=== PATIENT | female | born 1980 | race Caucasian/White ===

== ENCOUNTER 2017-07-03 11:02 | Emergency (ER) | payer BC ==
[~2017-07-03] VITALS: Ht 157.5 cm; Wt 90.0 kg
[~2017-07-03 11:02] MED LIST: ADDE30TA PO; B12-1CHW CHEW; HYDR-3534 PO; LEXA5SOL PO; MOBI7.5T PO; MULT-65 PO; PROM25TA5 PO; VALI10TA PO; ZANA6CAP PO
[2017-07-03 11:08] VITALS: BP 172/96; PULSE 64; RESP 18; TEMP 97.8; O2SAT 96
[2017-07-03 11:42] VITALS: O2SAT 98
[2017-07-03] MEDS ORDERED: ZOFR4TAB PO (11:43)
[2017-07-03] MEDS ORDERED: TIZA4 PO (11:43)
[2017-07-03] MEDS ORDERED: LEXA20TA PO (11:43)
[2017-07-03] MEDS ORDERED: HYDR-3583 PO (11:43)
[2017-07-03] MEDS ORDERED: SODIUM CHLOR 0.9% 1000 ML INJ 1,000 ML IV ONE (11:45)
[2017-07-03 11:54] LABS: BLOOD, URINE NEG (NEG); GLUCOSE,URINE NEG (NEG); KETONE, URINE NEG (NEG); NITRITE,URINE NEG (NEG)
[2017-07-03 11:55] LABS: AUTOMATED NEUTROPHIL # 3.2 TH/MM3 (1.8-7.7); BASOPHIL # 0.1 TH/MM3 (0-0.2); BASOPHIL % 1.3 % (0.0-2.0); EOSINOPHIL # 0.3 TH/MM3 (0-0.4); EOSINOPHIL % 4.7 % (0.0-4.0); HEMATOCRIT 36.6 % (35.0-46.0); HEMO FLAGS DIFF FINAL; LYMPH % 37.6 % (9.0-44.0); LYMPHOCYTE # 2.5 TH/MM3 (1.0-4.8); MEAN CELL VOLUME 93.1 FL (80.0-100.0); MEAN CORPUSCULAR HEMOGLOBIN 31.8 PG (27.0-34.0); MEAN CORPUSCULAR HGB CONC 34.1 % (32.0-36.0); MONO % 7.6 % (0.0-8.0); NEUT % 48.8 % (16.0-70.0); PLATELET COUNT 250 TH/MM3 (150-450); RED BLOOD COUNT 3.93 MIL/MM3 (4.00-5.30); RED CELL DISTRIBUTION WIDTH 12.8 % (11.6-17.2); WHITE BLOOD COUNT 6.6 TH/MM3 (4.0-11.0)
[2017-07-03 11:58] LABS: METHOD OF COLLECTION CLEAN CATCH; URINE COLOR STRAW (YELLW/STRAW)
--- NOTE | 2017-07-03 11:58 | PD ---
HPI Chief Complaint: Pain: Acute or Chronic Time Seen by Provider: 11:22 Travel History International Travel<30 days: No Contact w/Intl Traveler<30days: No Traveled to known affect area: No History of Present Illness HPI 36 y/o female presents with pain all over and nonbloody emesis. She feels like she is having a MS exacerbation. She has a management engineer and placed her own IV in her left wrist prior to arrival to get medication and fluids. She states that she is a hard stick. She states she last was in the hospital a month ago in [place] where she lives. She is here today as her ride lives in the area Onset: Gradual Duration:couple days Location: generalized Quality:sharp Severity: severe Context:ms Timing:progressive Modifying Factors: worse with movement Associated sign and symptoms:None PFSH Past Medical History ADHD: Yes Asthma: No Autoimmune Disease: Yes (MS) Blood Disorders: No Anxiety: Yes Depression: No Heart Rhythm Problems: No Cancer: No Cardiovascular Problems: Yes High Cholesterol: No Chemotherapy: No Chest Pain: No Congestive Heart Failure: No COPD: No Diabetes: No Diminished Hearing: No Endocrine: No Gastrointestinal Disorders: Yes (NAUSEA/VOMITING) Genitourinary: Yes Headaches: Yes Hepatitis: No Hiatal Hernia: No Hypertension: Yes Immune Disorder: No Implanted Vascular Access Dvce: No Kidney Stones: No Medical other: Yes (NAUSEA/VOMITING) Musculoskeletal: Yes (chronic back pain ) Neurologic: Yes (chronic vertigo) Psychiatric: Yes (ANXIETY) Reproductive: No Respiratory: No Migraines: Yes Radiation Therapy: No Renal Failure: No Seizures: No Sleep Apnea: No Thyroid Disease: No Tetanus Vaccination: < 5 Years Influenza Vaccination: Yes ?: Not LMP: TWO WEEKS AGO TUBAL LIGATION Past Surgical History Abdominal Surgery: Yes (ABD WALL TEAR FROM STRAINING) AICD: No Arteriovenous Shunt: No Cardiac Surgery: No Ear Surgery: No Endocrine Surgery: No Eye Surgery: No Genitourinary Surgery: Yes Gynecologic Surgery: Yes (LAPAROSCOPIC ABLATION, LAPAROSCOPIC EXPLORATORY) Insulin Pump: No Joint Replacement: No Neurologic Surgery: No Oral Surgery: Yes (wisdom teeth) Pacemaker: No Thoracic Surgery: No Other Surgery: Yes (laprascopic) Social History Alcohol Use: No Tobacco Use: No Substance Use: No Allergies-Medications (Allergen,Severity, Reaction): Coded Allergies: meclizine (Unverified Allergy, Severe, Hives, 07/03/17) VOMITING penicillin G (Unverified Allergy, Severe, HIVES, 07/03/17) hydrochlorothiazide (Unverified Adverse Reaction, Severe, LOW BLOOD PRESSURE TOO LOW, 07/03/17) Reported Meds & Prescriptions Reported Meds & Active Scripts Active Reported Zanaflex (Tizanidine HCl) 4 Mg Tab 4 Mg PO TID Hydrocodone-Acetaminophen 10-325 mg Tab 1 Tab PO Q4H PRN Lexapro (Escitalopram Oxalate) 20 Mg Tab 20 Mg PO DAILY Zofran (Ondansetron HCl) 4 Mg Tab 4 Mg PO Q6HR PRN Review of Systems Except as stated in HPI: all other systems reviewed are Neg Physical Exam Narrative GENERAL: Well-nourished, well-developed patient. talking with eyes closed SKIN: Warm and dry. HEAD: Normocephalic and atraumatic. EYES: No injection or drainage. pupils pinpoint ENT: No nasal drainage noted. NECK: Supple, trachea midline. CARDIOVASCULAR: Regular rate and rhythm RESPIRATORY: Breath sounds equal bilaterally. No accessory muscle use. GASTROINTESTINAL: Abdomen soft, non-tender, nondistended. EXTREMITIES: No edema. NEUROLOGICAL: Awake and alert. Motor and sensory grossly within normal limits. Normal speech. Data Data Last Documented VS Vital Signs Date Time Temp Pulse Resp B/P (MAP) Pulse Ox O2 Delivery O2 Flow Rate FiO2 07/03/17 14:53 07/03/17 14:32 69 16 100 Room Air 07/03/17 11:08 97.8 Orders Orders Magnesium (Mg) (07/03/17 11:38) Phosphorus (Po4) (07/03/17 11:38) Complete Blood Count With Diff (07/03/17 11:38) Comprehensive Metabolic Panel (07/03/17 11:38) Urinalysis - C+S If Indicated (07/03/17 11:38) Act Partial Throm Time (Ptt) (07/03/17 11:38) Prothrombin Time / Inr (Pt) (07/03/17 11:38) Ct Brain W/O Iv Contrast(Rout) (07/03/17 ) Chest, Single Ap (07/03/17 ) Electrocardiogram (07/03/17 ) Iv Access Insert/Monitor (07/03/17 11:38) Ecg Monitoring (07/03/17 11:38) Oximetry (07/03/17 11:38) Sodium Chlor 0.9% 1000 Ml Inj (Ns 1000 M (07/03/17 11:45) Drug Screen, Random Urine (07/03/17 11:38) Ondansetron Odt (Zofran Odt) (07/03/17 14:15) Ed Discharge Order (07/03/17 14:26) Ketorolac Inj (Toradol Inj) (07/03/17 14:45) Labs Laboratory Tests Test 07/03/17 11:45 07/03/17 12:15 White Blood Count 6.6 TH/MM3 Red Blood Count 3.93 MIL/MM3 Hemoglobin 12.5 GM/DL Hematocrit 36.6 % Mean Corpuscular Volume 93.1 FL Mean Corpuscular Hemoglobin 31.8 PG Mean Corpuscular Hemoglobin Concent 34.1 % Red Cell Distribution Width 12.8 % Platelet Count 250 TH/MM3 Mean Platelet Volume 10.7 FL Neutrophils (%) (Auto) 48.8 % Lymphocytes (%) (Auto) 37.6 % Monocytes (%) (Auto) 7.6 % Eosinophils (%) (Auto) 4.7 % Basophils (%) (Auto) 1.3 % Neutrophils # (Auto) 3.2 TH/MM3 Lymphocytes # (Auto) 2.5 TH/MM3 Monocytes # (Auto) 0.5 TH/MM3 Eosinophils # (Auto) 0.3 TH/MM3 Basophils # (Auto) 0.1 TH/MM3 CBC Comment DIFF FINAL Differential Comment Urine Collection Type CLEAN CATCH Urine Color STRAW Urine Turbidity CLEAR Urine pH 6.0 Urine Specific [place] 1.006 Urine Protein NEG mg/dL Urine Glucose (UA) NEG mg/dL Urine Ketones NEG mg/dL Urine Occult Blood NEG Urine Nitrite NEG Urine Bilirubin NEG Urine Leukocyte Esterase NEG Urine Squamous Epithelial Cells 0-5 /hpf Microscopic Urinalysis Comment CULT NOT INDICATED Urine Opiates Screen POS Urine Barbiturates Screen NEG Urine Amphetamines Screen NEG Urine Benzodiazepines Screen POS Urine Cocaine Screen NEG Urine Cannabinoids Screen NEG Prothrombin Time 10.0 SEC Prothromb Time International Ratio 0.9 RATIO Activated Partial Thromboplast Time 23.6 SEC Blood Urea Nitrogen 8 MG/DL Creatinine 0.82 MG/DL Random Glucose 99 MG/DL Total Protein 6.7 GM/DL Albumin 3.4 GM/DL Calcium Level 8.3 MG/DL Phosphorus Level 3.6 MG/DL Magnesium Level 2.0 MG/DL Alkaline Phosphatase 71 U/L Aspartate Amino Transf (AST/SGOT) 17 U/L Alanine Aminotransferase (ALT/SGPT) 22 U/L Total Bilirubin 0.4 MG/DL Sodium Level 140 MEQ/L Potassium Level 3.8 MEQ/L Chloride Level 107 MEQ/L Carbon Dioxide Level 23.7 MEQ/L Anion Gap 9 MEQ/L Estimat Glomerular Filtration Rate 78 ML/MIN MDM Medical Decision Making Medical Screen Exam Complete: Yes Emergency Medical Condition: Yes Medical Record Reviewed: Yes (pmh confirmed) Interpretation(s) CBC & BMP Diagram 07/03/17 11:45 07/03/17 12:15 Total Protein 6.7, Albumin 3.4, Calcium Level 8.3 L, Phosphorus Level 3.6, Magnesium Level 2.0, Alkaline Phosphatase 71, Aspartate Amino Transf (AST/SGOT) 17, Alanine Aminotransferase (ALT/SGPT) 22, Total Bilirubin 0.4 Last [address] 07/03/17 0000 Signed Impressions: Service Date/Time: Monday, July 03, 2017 11:47 - CONCLUSION: 1. No acute intracranial abnormality identified. Sunny Jamison MD Chest X-Ray 07/03/17 0000 Signed Impressions: Service Date/Time: Monday, July 03, 2017 12:14 - CONCLUSION: 1. Left basilar subsegmental atelectasis versus scarring. Kumar Haney MD Differential Diagnosis MS exacerbation, UTI, URI, electrolyte abnormality, anemia Narrative Course Will check blood work, imaging and dose with fluids and reevaluate ed workup no acute, will get records and discuss with her neurologist, patient requesting pain medication, will dose with toradol and zofran for nausea Patient denies any new complaints, all questions answered. Patient knows that follow up is incumbent on them and to return to the emergency room immediately if new or worsening symptoms develop. Patient given strict return precautions, vitals reviewed and are normal, agrees to further workup as an outpatient. Physician Communication Physician Communication dr potter states to ma and will see in office Diagnosis Primary Impression: Generalized pain Additional Impression: Nausea Patient Instructions: General Instructions Additional Instructions: tylenol as needed, follow with your neurologist tommorrow, return as needed Med/Other Pt SpecificInfo: No Change to Meds Disposition: 01 DISCHARGE HOME Condition: Stable Elvie Castellanos MD Jul 03, 2017 11:58
[2017-07-03 11:59] LABS: COMMENT (UR) CULT NOT INDICATED; CULTURE IF INDICATED CULT NOT INDICATED; SQUAMOUS EPITHELIAL CELL URINE 0-5 /hpf (0-5)
[2017-07-03 12:31] LABS: CHLORIDE 107 MEQ/L (98-107); POTASSIUM 3.8 MEQ/L (3.5-5.1); SODIUM (NA) 140 MEQ/L (136-145)
[2017-07-03 12:35] LABS: APTT (PATIENT) 23.6 SEC (24.3-30.1); INTERNATIONAL NORMALIZED RATIO 0.9 RATIO
--- NOTE | 2017-07-03 12:36 | RADRPT ---
EXAM DATE/TIME: 07/03/2017 12:14 [facility] COMPARISON: No previous studies available for comparison. INDICATIONS : Weakness and slurred speech today. MEDICAL HISTORY : Multiple sclerosis. SURGICAL HISTORY : None. ENCOUNTER: Initial ACUITY: 1 day PAIN SCORE: 2/10 LOCATION: Bilateral chest FINDINGS: A single view of the chest demonstrates the lungs to be symmetrically aerated without evidence of mas s, infiltrate or effusion. Left basilar subsegmental atelectasis versus scarring. The cardiomediasti nal contours are unremarkable. Osseous structures are intact. CONCLUSION: 1. Left basilar subsegmental atelectasis versus scarring. Kumar Haney MD on July 03, 2017 at 12:34 Board Certified Radiologist. This report was verified electronically.
[2017-07-03 12:39] LABS: ANION GAP 9 MEQ/L (5-15); BICARBONATE 23.7 MEQ/L (21.0-32.0); BLOOD UREA NITROGEN 8 MG/DL (7-18)
[2017-07-03 12:42] LABS: ALT (GPT) 22 U/L (10-53); AST (GOT) 17 U/L (15-37); GLOMERULAR FILTRATION RATE 78 ML/MIN (>89)
[2017-07-03 12:43] LABS: TOTAL BILIRUBIN ADULT 0.4 MG/DL (0.2-1.0)
[2017-07-03 12:45] LABS: ALKALINE PHOSPHATASE 71 U/L (45-117)
[2017-07-03 12:55] VITALS: BP 124/82; PULSE 66; RESP 16; O2SAT 95
--- NOTE | 2017-07-03 13:44 | RADRPT ---
EXAM DATE/TIME: 07/03/2017 11:47 [facility] COMPARISON: CTA CAROTID ARTERIES W 3D RECON, March 12, 2014, 12:28. INDICATIONS : Confusion. RADIATION DOSE: 55.61 CTDIvol (mGy) MEDICAL HISTORY : Hypertension. SURGICAL HISTORY : None. ENCOUNTER: Initial ACUITY: 1 day PAIN SCALE: 0/10 LOCATION: cranial TECHNIQUE: Multiple contiguous axial images were obtained of the head. Using automated exposure control and adj ustment of the mA and/or kV according to patient size, radiation dose was kept as low as reasonably a chievable to obtain optimal diagnostic quality images. DICOM format image data is available electro nically for review and comparison. FINDINGS: CEREBRUM: The ventricles are normal for age. No evidence of midline shift, mass lesion, hemorrhage or acute in farction. No extra-axial fluid collections are seen. POSTERIOR FOSSA: The cerebellum and brainstem are intact. The 4th ventricle is midline. The cerebellopontine angle i s unremarkable. EXTRACRANIAL: The visualized portion of the orbits is intact. SKULL: The calvaria is intact. No evidence of skull fracture. CONCLUSION: 1. No acute intracranial abnormality identified. Sunny Jamison MD on July 03, 2017 at 13:29 Board Certified Radiologist. This report was verified electronically.
[2017-07-03] MEDS ORDERED: ONDANSETRON ODT 4 MG TAB PO ONE (14:15)
[2017-07-03 14:32] VITALS: BP 140/89; PULSE 69; RESP 16; O2SAT 100
[2017-07-03] MEDS ORDERED: KETOROLAC TROMETHAMINE 60 MG/2 ML (IM) VIAL IM ONE (14:45)
--- NOTE | 2017-07-03 21:16 | EKG ---
Date Performed: 07/03/2017 Time Performed: 12:06:07 PTAGE: 36 years EKG: Sinus rhythm NORMAL ECG PREVIOUS TRACING : 11/10/2014 13.34 Compared to prior tracing no significant change DOCTOR: Corinne Santos Interpretating Date/Time 07/03/2017 21:15:14
== END 2017-07-03 14:53 | disposition home or self-care (01) ==
LOC: PHED 11:02
DX: G35 Multiple sclerosis (principal); R11.0 Nausea; Z79.899 Other long term (current) drug therapy
CPT/HCPCS: 70450; 71010; 80053; 80307; 81001; 83735; 84100; 85025; 85610; 85730; 93005; 96372; 99285; J1885

== ENCOUNTER 2017-07-06 14:24 | Emergency (ER) | payer BC ==
[~2017-07-06] VITALS: Ht 157.5 cm; Wt 85.0 kg
[~2017-07-06 14:24] MED LIST changes: -ADDE30TA PO; -B12-1CHW CHEW; -HYDR-3534 PO; +HYDR-3583 PO; +LEXA20TA PO; -LEXA5SOL PO; -MOBI7.5T PO; -MULT-65 PO; -PROM25TA5 PO; +TIZA4 PO; -VALI10TA PO; -ZANA6CAP PO; +ZOFR4TAB PO
[2017-07-06 14:28] VITALS: BP 141/90; PULSE 97; RESP 18; TEMP 98.1; O2SAT 98
[2017-07-06] MEDS ORDERED: MORP1TAB24 PO (14:48)
[2017-07-06] MEDS ORDERED: PROM1SUP7 RECTAL ×2 (14:48→16:10)
[2017-07-06] MEDS ORDERED: ESZO2 PO (14:48)
--- NOTE | 2017-07-06 14:51 | PD ---
HPI Chief Complaint: Dizziness Time Seen by Provider: 14:37 Travel History International Travel<30 days: No Contact w/Intl Traveler<30days: No Traveled to known affect area: No History of Present Illness HPI The patient was seen and examined in the presence of the nurse. This patient complains of vertigo. She has a room spinning dizziness. His problem she periodically has. She reports a history of multiple sclerosis. She saw her neurologist yesterday. Severity is moderate. She complains of nausea. No motor strength weakness or sensory loss or head injury or fever. Duration 3 days. No alleviating factors. No exacerbating factors. PFSH Past Medical History ADHD: Yes Asthma: No Autoimmune Disease: Yes (MS) Blood Disorders: No Anxiety: Yes Depression: No Heart Rhythm Problems: No Cancer: No Cardiovascular Problems: Yes High Cholesterol: No Chemotherapy: No Chest Pain: No Congestive Heart Failure: No COPD: No Diabetes: No Diminished Hearing: No Endocrine: No Gastrointestinal Disorders: Yes (NAUSEA/VOMITING) Genitourinary: Yes Headaches: Yes Hepatitis: No Hiatal Hernia: No Hypertension: Yes Immune Disorder: No Implanted Vascular Access Dvce: No Kidney Stones: No Musculoskeletal: Yes (chronic back pain ) Neurologic: Yes (chronic vertigo) Psychiatric: Yes (ANXIETY) Reproductive: No Respiratory: No Migraines: Yes Radiation Therapy: No Renal Failure: No Seizures: No Sleep Apnea: No Thyroid Disease: No ?: Not Past Surgical History Abdominal Surgery: Yes (ABD WALL TEAR FROM STRAINING) AICD: No Arteriovenous Shunt: No Cardiac Surgery: No Ear Surgery: No Endocrine Surgery: No Eye Surgery: No Genitourinary Surgery: Yes Gynecologic Surgery: Yes (LAPAROSCOPIC ABLATION, LAPAROSCOPIC EXPLORATORY) Insulin Pump: No Joint Replacement: No Neurologic Surgery: No Oral Surgery: Yes (wisdom teeth) Pacemaker: No Thoracic Surgery: No Other Surgery: Yes (laprascopic) Social History Alcohol Use: No Tobacco Use: No Substance Use: No Allergies-Medications (Allergen,Severity, Reaction): Coded Allergies: meclizine (Unverified Allergy, Severe, Hives, 07/06/17) VOMITING penicillin G (Unverified Allergy, Severe, HIVES, 07/06/17) hydrochlorothiazide (Unverified Adverse Reaction, Severe, LOW BLOOD PRESSURE TOO LOW, 07/06/17) Reported Meds & Prescriptions Reported Meds & Active Scripts Active Phenergan Supp (Promethazine HCl) 25 Mg Supp 25 Mg RECTAL Q6H PRN Prochlorperazine Supp (Prochlorperazine) 25 Mg Supp 25 Mg RECTAL Q6H PRN Zofran Odt (Ondansetron Odt) 4 Mg Tab 4 Mg SL Q6HR PRN Reported Lunesta (Eszopiclone) 2 Mg Tab 2 Mg PO HS PRN Phenergan Supp (Promethazine HCl) 25 Mg Supp 25 Mg RECTAL Q6H PRN Morphine ER (Morphine Sulfate) 15 Mg Tab 15 Mg PO TID Zanaflex (Tizanidine HCl) 4 Mg Tab 4 Mg PO TID Hydrocodone-Acetaminophen 10-325 mg Tab 1 Tab PO Q4H PRN Lexapro (Escitalopram Oxalate) 20 Mg Tab 20 Mg PO DAILY Zofran (Ondansetron HCl) 4 Mg Tab 4 Mg PO Q6HR PRN Review of Systems General / Constitutional: No: Fever Eyes: No: Visual changes HENT: Positive: Vertigo, No: Headaches Cardiovascular: No: Chest Pain or Discomfort Respiratory: No: Shortness of Breath Gastrointestinal: Positive: Nausea, Vomiting, No: Abdominal Pain Genitourinary: No: Dysuria Musculoskeletal: No: Pain Skin: No Rash Neurologic: No: Weakness Psychiatric: No: Depression Endocrine: No: Polydipsia Hematologic/Lymphatic: No: Easy Bruising Physical Exam Narrative GENERAL: Well-nourished, well-developed patient with vertigo complaint. SKIN: Focused skin assessment reveals no rash and nodules. Skin is Warm and dry. HEAD: Atraumatic. Normocephalic. EYES: Pupils equal and round. No scleral icterus. No injection or drainage. ENT: No nasal bleeding or discharge. Mucous membranes pink and moist. NECK: Trachea midline. No JVD. CARDIOVASCULAR: Regular rate and rhythm. No murmur appreciated. RESPIRATORY: No accessory muscle use. Clear to auscultation. Breath sounds equal bilaterally. GASTROINTESTINAL: Abdomen soft, non-tender, nondistended. Hepatic and splenic margins not palpable. MUSCULOSKELETAL: No obvious deformities. No clubbing. No cyanosis. No edema. NEUROLOGICAL: Awake and alert. No obvious cranial nerve deficits. Motor grossly within normal limits. Normal speech. PSYCHIATRIC: Appropriate mood and affect; insight and judgment normal. Data Data Last Documented VS Vital Signs Date Time Temp Pulse Resp B/P (MAP) Pulse Ox O2 Delivery O2 Flow Rate FiO2 07/06/17 14:28 98.1 97 18 141/90 (107) 98 Orders Orders Ondansetron Inj (Zofran Inj) (07/06/17 15:00) Promethazine Inj (Phenergan Inj) (07/06/17 15:00) Lorazepam Inj (Ativan Inj) (07/06/17 15:15) Prochlorperazine Inj (Compazine Inj) (07/06/17 15:45) MDM Medical Decision Making Medical Screen Exam Complete: Yes Emergency Medical Condition: Yes Medical Record Reviewed: Yes Differential Diagnosis Vertigo, labyrinthitis, MS flare Narrative Course I have reviewed the patient's electronic medical record. Patient was seen here 3 days ago and had extensive workup which was negative Patient declines meclizine stating it makes her vomit I gave her injection of Phenergan and Zofran Patient has no neurologic deficit Exam is normal and vitals are normal She is euvolemic I gave her injection of Ativan and Compazine She's not had vomiting since she has been here Stable for outpatient follow-up I wrote her several prescriptions for nausea relief Diagnosis Primary Impression: Vertigo Additional Impression: Nausea Additional Instructions: The patient was advised to follow up with their physician and return if they worsen. I have recommended clear liquids for 24 hours, then gradually advance as tolerated. The patient was warned about potential sedation for the medications they will receive on prescription. Med/Other Pt SpecificInfo: Prescription(s) given Scripts Promethazine Supp (Phenergan Supp) 25 Mg Supp 25 MG RECTAL Q6H Y for NAUSEA OR VOMITING, #15 SUPP 0 Refills Prov: Eusebio Jaramillo MD 07/06/17 Prochlorperazine Supp (Prochlorperazine Supp) 25 Mg Supp 25 MG RECTAL Q6H Y for NAUSEA OR VOMITING, #15 SUPP 0 Refills Prov: Eusebio Jaramillo MD 07/06/17 Ondansetron Odt (Zofran Odt) 4 Mg Tab 4 MG SL Q6HR Y for Nausea/Vomiting, #15 TAB 0 Refills Prov: Eusebio Jaramillo MD 07/06/17 Disposition: 01 DISCHARGE HOME Condition: Stable Eusebio Jaramillo MD Jul 06, 2017 14:51
[2017-07-06] MEDS ORDERED: PROMETHAZINE INJ 25 MG/ML VIAL IM ONE (15:00)
[2017-07-06] MEDS ORDERED: ONDANSETRON HCL 4 MG/2 ML VIAL IM ONE (15:00)
[2017-07-06] MEDS ORDERED: LORazepam 2 MG/ML VIAL IM ONE (15:15)
[2017-07-06] MEDS ORDERED: PROCHLORPERAZINE INJ 10 MG/2 ML VIAL IM ONE (15:45)
[2017-07-06] MEDS ORDERED: ZOFR4TAB3 SL (16:10)
[2017-07-06] MEDS ORDERED: PROC25SU22 RECTAL (16:10)
== END 2017-07-06 17:56 | disposition home or self-care (01) ==
LOC: PHED 14:24
DX: R42 Dizziness and giddiness (principal); R11.0 Nausea; G35 Multiple sclerosis
CPT/HCPCS: 96372; 99284; J0780; J2060; J2405; J2550